=== PATIENT | male | born 1995 | race Caucasian/White ===

== ENCOUNTER 2017-10-25 08:56 | Observation (INO) | payer OTHER ==
[2017-10-24 10:39] VITALS: BMI 22.2
[2017-10-25] MEDS ORDERED: Midazolam HCl 2 mg/2 ml Vial ONE (09:58)
[2017-10-25] MEDS ORDERED: Fentanyl 100 MCG/2 ML VIAL ONE ×2 (09:58→11:10)
[2017-10-25] MEDS ORDERED: Ropivacaine 0.2% 550 ML 550 ML NERVE BLCK SCH (10:33)
[2017-10-25] MEDS ORDERED: Ketorolac Tromethamine 30 MG/ML VIAL IVP PRN (10:33)
[2017-10-25] MEDS ORDERED: Ondansetron HCl/PF 4 MG/2 ML Vial IVP PRN ×2 (10:33→13:31)
[2017-10-25] MEDS ORDERED: Zolpidem Tartrate 5 MG TAB PO PRN (10:33)
[2017-10-25] MEDS ORDERED: Promethazine HCl 25 MG/ML VIAL IM PRN ×2 (10:33→13:31)
[2017-10-25] MEDS ORDERED: Fentanyl 100 MCG/2 ML VIAL IV PRN (10:33)
[2017-10-25] MEDS ORDERED: traMADol HCl 50 MG TAB PO PRN ×2 (10:33)
[2017-10-25] MEDS ORDERED: HYDROcodone/Acetaminophen 7.5/325 mg Tablet PO PRN (10:35)
[2017-10-25] MEDS ORDERED: CEFAZOLIN/Water 2 GM/20 ML SYRINGE ONE (11:24)
[2017-10-25] MEDS ORDERED: Acetaminophen 500 MG TAB PO PRN (13:21)
[2017-10-25] MEDS ORDERED: Methocarbamol 500 MG TAB PO PRN (13:21)
[2017-10-25] MEDS ORDERED: Bisacodyl 10 MG SUPP PR PRN (13:21)
[2017-10-25] MEDS ORDERED: Morphine 4 MG/ML Carpuject SLOW IVP PRN (13:21)
[2017-10-25] MEDS ORDERED: Milk Of Magnesia 30 ML UDCUP PO PRN (13:21)
[2017-10-25] MEDS ORDERED: diphenhydrAMINE 50 MG CAP PO PRN (13:21)
[2017-10-25] MEDS ORDERED: Promethazine HCl 25 MG/ML VIAL SLOW IVP PRN (13:31)
--- NOTE | 2017-10-25 14:06 | OP ---
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 PROCEDURES PERFORMED: 1. Exam under anesthesia, left lower extremity. 2. Left knee arthroscopy with partial medial meniscectomy. 3. ACL reconstruction using autologous patellar tendon graft. SURGEON: Francisco Stovall M.D. [employer] SALES LEADER: Bryan Delgado PA-C. BLOOD LOSS: Minimal. COMPLICATIONS: None. ANESTHESIA: He had a block as well as a general anesthetic. IMPLANTS: We used a 7 x 25 metal interference screw on the femoral side and a bicortical screw and s mooth washer on the tibial side. These were both [employer] devices. DISPOSITION: He did go to the recovery room in stable condition. INDICATIONS: A 22-year-old male who unfortunately had a problem with his knee for a year and a half where periodically the knee will lock up and then will unlock. He had an MRI scan, which showed him to have an ACL tear as well as a bucket handle medial meniscus tear and at this time, he opted to hav e surgery. DESCRIPTION OF PROCEDURE: After all appropriate consent forms were explained and signed, he was take n back to operating room and at this time was given a general anesthetic. Once the level of anesthes ia was appropriate, the tourniquet was placed on the left thigh and leg was then examined and a posit marlo Malik was noted. Leg was then placed in an arthroscopic leg drake and was then prepped and dr aped in a standard surgical fashion. Limb was exsanguinated and the tourniquet was taken up to 250 m mHg. Midline incision was made with a 10 blade down through skin. Bovie was used to coagulate any b risk venous bleeding. New blade was used to take the paratenon off the underlying patellar tendon an d a central third patellar tendon graft was harvested using the double 10 blade saw and osteotome. T his was taken to the back table and made so that the femoral plug was a 10 and the tibial plug was a size 11. At this time, we loosely closed our graft site with some interrupted Vicryls. We then made an inferolateral portal, placed the scope into the knee joint. A needle localization technique was then used to make a medial portal and diagnostic arthroscopy commenced. The patellofemoral joint was found to be in normal condition. The bucket handle medial meniscus was found to be in the notch. A CL was found to be torn and essentially absent and the PCL was intact. We were unable to push the me dial meniscus back into the medial compartment and thus it was trimmed and they were sat removing the portion of the meniscus that was torn. We then were able to flip the small little remnant off the p osterior horn back into the joint using meniscal biter and shaver to trim this off as well. Remainin g meniscal tissue was in good condition. Thankfully, the articular surface of the femur and tibia we re also in good condition. Lateral compartment was evaluated and found to be intact. At this time, we performed a notchplasty using the shaver and the dayami. Once this was done, we placed our over-the -top guide through the medial portal and placed the pin up and out the anterolateral thigh. We then reamed this with a 10 mm acorn reamer to a depth of 30. This was removed and all loose bony cartilag inous debris was removed from the knee joint. At this time, the tibial guide was set into the knee a t 52-1/2 degrees. The pin was placed up into the old ACL footprint and at this time, a 11 mm reamer was used to ream our tibial tunnel. Once this was done, again all loose cartilage and bony debris wa s removed from the knee joint as well as any remaining soft tissue from the edges. We then smoothed the edges with a rasp, as well as a dayami and we then went dry. We then placed a pin up and out the a nterolateral thigh one more time and used this to pull our passing suture into the knee joint. This was then pulled down the tibial side and used to pull our graft up into the knee. We then fixated ou r femoral side with a 7 x 25 metal interference screw. Once this was done, we drilled, tapped and pl aced our bicortical screw with a smooth washer on the tibia and used this as a post to tie our tibial strings upon it. This was done in near full extension and posterior drawer being applied. Once thi s was done, we then took the knee through full range of motion and went from approximately 3-5 degree s of hyperextension to full flexion and no impingement was noted. At this time, scope was removed, k nee was drained. We then went ahead and bone grafted our patellar site. We then put some bone graft in the tibial side as well as the Gelfoam. We then ran a Vicryl to close our paratenon layer follow ed by 2-0 Vicryl and surgical garfield to close skin. Bulky sterile dressing was applied and tourniqu et was let down. Toes pinked up nicely. The patient was then awakened. He was taken to the recover y room in stable condition. All counts were correct at the end of the case and he did receive preope rative IV antibiotics.
[2017-10-25] MEDS ORDERED: Bupivacaine/Epinephrine 0.25% 30 ML VIAL ONE (15:47)
[2017-10-25] MEDS ORDERED: Ropivacaine 0.5% HCl/PF (150 MG/30 ML VIAL) ONE (15:47)
[2017-10-25] MEDS ORDERED: Lidocaine 1% PF 5 ML VIAL ONE (16:49)
[2017-10-25] MEDS ORDERED: Ondansetron HCl/PF 4 MG/2 ML Vial ONE (16:49)
[2017-10-25] MEDS ORDERED: PROPOFOL 200 MG/20 ML VIAL ONE (16:49)
[2017-10-25] MEDS ORDERED: diphenhydrAMINE 50 MG/ML VIAL ONE (16:49)
[2017-10-25] MEDS: Dextrose 5 %-0.45 % NaCl 1,000 ML IV SCH ×2 (17:38→20:12)
[2017-10-25] MEDS: Famotidine 20 MG TAB PO SCH (20:09)
[2017-10-25] MEDS: CEFAZOLIN/Water 2 GM/20 ML SYRINGE SLOW IVP SCH (20:09)
[2017-10-26] MEDS: HYDROcodone/Acetaminophen 7.5/325 mg Tablet PO PRN ×3 (00:22→09:13)
[2017-10-26] MEDS: CEFAZOLIN/Water 2 GM/20 ML SYRINGE SLOW IVP SCH (04:19)
[2017-10-26 08:04] VITALS: BP 128/81; TEMP 97.8
[2017-10-26] MEDS: Famotidine 20 MG TAB PO SCH (09:13)
== END 2017-10-26 11:15 | disposition home or self-care (01) ==
LOC: SDC 08:56 → SURG A 14:15
PROVIDERS: ADMIT Orthopaedic Surgery; ATTEND Orthopaedic Surgery
PROC: 0MRP47Z Replacement of Left Knee Bursa and Ligament with Autologous Tissue Substitute, Percutaneous Endoscopic Approach (ICD-10-PCS; principal; 2017-10-25)
PROC: 0SBD4ZZ Excision of Left Knee Joint, Percutaneous Endoscopic Approach (ICD-10-PCS; 2017-10-25)
DX: S83.512A Sprain of anterior cruciate ligament of left knee, initial encounter (principal); S83.212A Bucket-handle tear of medial meniscus, current injury, left knee, initial encounter; Z79.899 Other long term (current) drug therapy; Z98.818 Other dental procedure status; Z87.891 Personal history of nicotine dependence
CPT/HCPCS: 96374; 96375; 96376; A4306; C1713; G0378; G8978-GP-CI; G8979-GP-CI; G8980-GP-CI; J1200; J1885; J2001; J2250; J2405; J2704; J2795; J3010